=== PATIENT | male | born 1940 | race Caucasian/White ===

== ENCOUNTER → 2018-05-28 | Outpatient (CLI) | payer MEDICARE, OTHER ==
[~2018-05-28] MED LIST: REGADENOSON 0.4 MG/5 ML SYRINGE ONE
== END | disposition home or self-care (01) ==
LOC: CFH 08:18
PROVIDERS: ATTEND Internal Medicine Cardiovascular Disease
DX: I08.1 Rheumatic disorders of both mitral and tricuspid valves (principal); I48.2 Chronic atrial fibrillation; I10 Essential (primary) hypertension; E78.5 Hyperlipidemia, unspecified; Z86.73 Personal history of transient ischemic attack (TIA), and cerebral infarction without residual deficits; Z87.891 Personal history of nicotine dependence
CPT/HCPCS: 78452; 93017; 93306; A9502; J2785

== ENCOUNTER 2018-08-01 08:59 | Observation (INO) | payer MEDICARE, OTHER ==
[~2018-08-01] VITALS: Ht 171.4 cm; Wt 94.1 kg
[2018-08-01] MEDS ORDERED: SODIUM CHLORIDE 0.9% 1,000 ML IV SCH (09:41)
[2018-08-01 09:44] VITALS: BP 160/91
[2018-08-01] MEDS ORDERED: TAMS0.4C2 PO (09:53)
[2018-08-01] MEDS ORDERED: IBAN150T PO (09:53)
[2018-08-01] MEDS ORDERED: OMEP-110 PO (09:53)
[2018-08-01] MEDS ORDERED: ATOR40TA PO (09:53)
[2018-08-01] MEDS ORDERED: METO50TA82 PO (09:53)
[2018-08-01] MEDS ORDERED: FURO20TA3 PO (09:53)
[2018-08-01] MEDS ORDERED: APIX5TAB PO (09:53)
[2018-08-01] MEDS ORDERED: AMIO200T42 PO (09:53)
[2018-08-01] MEDS ORDERED: DUTA0.5C15 PO (09:53)
[2018-08-01] MEDS ORDERED: COLC0.6T37 PO (09:53)
[2018-08-01] MEDS ORDERED: POTA20TA6 PO (09:53)
[2018-08-01] MEDS ORDERED: PLEASE ENTER HEIGHT AND WEIGHT MC SCH (10:00)
[2018-08-01] MEDS ORDERED: FENTANYL PF 250 MCG/5ML ONE (11:55)
[2018-08-01] MEDS ORDERED: ROCURONIUM 10 MG/ML,10ML ONE (12:02)
[2018-08-01] MEDS ORDERED: PROPOFOL 10 MG/ML, 20ML ONE (12:02)
[2018-08-01] MEDS ORDERED: DEXAMETHASONE 4 MG/ML, 1ML ONE (12:02)
[2018-08-01] MEDS ORDERED: PROTAMINE SULFATE 10 MG/ML, 5ML ONE (12:02)
[2018-08-01] MEDS ORDERED: ONDANSETRON 2MG/ML, 2ML ONE (12:02)
[2018-08-01] MEDS ORDERED: ACETAMINOPHEN 325 MG TABLET PO PRN (13:30)
[2018-08-01] MEDS ORDERED: ZOLPIDEM 5MG TABLET PO PRN (13:30)
[2018-08-01] MEDS ORDERED: PROMETHAZINE 12.5 MG SUPP PR PRN (14:00)
[2018-08-01] MEDS ORDERED: PROMETHAZINE 25 MG SUPP PR PRN (14:00)
[2018-08-01] MEDS ORDERED: PROMETHAZINE 25 MG/ML, 1ML IV PRN (14:00)
[2018-08-01] MEDS ORDERED: EPHEDRINE 50 MG/ML, 1ML IVPush PRN (14:00)
[2018-08-01] MEDS ORDERED: FENTANYL PF 100 MCG/2ML IV PRN (14:00)
[2018-08-01] MEDS ORDERED: MORPHINE SULFATE 4 MG/ML, 1ML IVPush PRN (14:00)
[2018-08-01] MEDS ORDERED: ALBUTEROL/IPRATROPIUM 2.5MG/0.5MG, 3 ML NPPB PRN (14:00)
[2018-08-01] MEDS ORDERED: MIDAZOLAM 1 MG/ML, 2ML IV PRN (14:00)
[2018-08-01] MEDS ORDERED: ONDANSETRON ODT 8 MG PO PRN (14:00)
[2018-08-01] MEDS ORDERED: OXYcodone 5 MG/5 ML ORAL.SOL UDC PO PRN (14:00)
[2018-08-01] MEDS ORDERED: ONDANSETRON 2MG/ML, 2ML IV PRN (14:00)
[2018-08-01] MEDS ORDERED: APIXABAN 5 MG TABLET ONE (16:15)
[2018-08-01] MEDS ORDERED: MULT-658 PO (17:30)
[2018-08-01] MEDS: POTASSIUM CHLORIDE 20 MEQ TAB.ER.PRT PO SCH (17:44)
[2018-08-01 19:42] VITALS: BP 102/68
[2018-08-01] MEDS ORDERED: ATORVASTATIN 10 MG TABLET PO SCH (21:00)
[2018-08-01] MEDS ORDERED: APIXABAN 5 MG TABLET PO SCH (21:00)
[2018-08-01 21:02] VITALS: BP 112/62
[2018-08-01] MEDS: APIXABAN 5 MG TABLET PO SCH (21:11)
[2018-08-01] MEDS: METOPROLOL TARTRATE 50 MG TABLET PO SCH (21:11)
[2018-08-02 01:47] VITALS: BP 105/60
[2018-08-02 07:11] VITALS: BP 110/67
[2018-08-02] MEDS ORDERED: OMEPRAZOLE 20 MG CAPSULE.DR PO SCH (07:30)
[2018-08-02] MEDS ORDERED: ACET325T14 PO (08:11)
[2018-08-02] MEDS: POTASSIUM CHLORIDE 20 MEQ TAB.ER.PRT PO SCH (08:16)
[2018-08-02] MEDS: METOPROLOL TARTRATE 50 MG TABLET PO SCH (08:30)
[2018-08-02] MEDS: APIXABAN 5 MG TABLET PO SCH (08:32)
[2018-08-02] MEDS ORDERED: DUTASTERIDE 0.5 MG CAPSULE PO SCH (09:00)
[2018-08-02] MEDS ORDERED: AMIODARONE 200 MG TABLET PO SCH (09:00)
[2018-08-02] MEDS ORDERED: TAMSULOSIN 0.4 MG CAP.ER.24H PO SCH (09:00)
[2018-08-02] MEDS ORDERED: FUROSEMIDE 40 MG TABLET PO SCH (09:00)
[2018-08-02] MEDS ORDERED: COLCHICINE 0.6 MG TABLET PO SCH (09:00)
[2018-08-31] MEDS ORDERED: IBANDRONATE SODIUM 150 MG HOMEMEDPO SCH (09:00)
== END 2018-08-02 10:54 | disposition home or self-care (01) ==
LOC: CACL 08:59 → ORIP 13:25 → 5SO 16:28 → DCLOUNGE 08-02 10:43
PROVIDERS: ADMIT Internal Medicine Cardiovascular Disease; ATTEND Internal Medicine Cardiovascular Disease
DX: I48.91 Unspecified atrial fibrillation (principal); I48.92 Unspecified atrial flutter; I45.9 Conduction disorder, unspecified; N40.0 Benign prostatic hyperplasia without lower urinary tract symptoms; Z79.899 Other long term (current) drug therapy
CPT/HCPCS: 85347; 93308; 93613; 93655; 93656; 93662; C1730; C1731; C1732; C1759; C1766; C1893; C1894; G0378; J1100; J2405; J2704; J2720; J3010